=== PATIENT | male | born 1955 | race Asian ===

== ENCOUNTER 2020-06-01 05:57 | Emergency (ER) | payer OTHER ==
[~2020-06-01] VITALS: Ht 172.7 cm; Wt 79.1 kg
[~2020-06-01 05:57] MED LIST: ALLO100T PO; ASPI81TA39 PO; ATEN-73 PO; PRED50TA2 PO; SIMV-261 PO
[2020-06-01] MEDS ORDERED: ACETAMINOPHEN 500 MG TABLET PO ONE (06:30)
[2020-06-01] MEDS ORDERED: SODIUM CHLORIDE 0.9% 1,000 ML IV ONE (06:30)
[2020-06-01] MEDS ORDERED: MORPHINE SULFATE 4 MG/ML SYRINGE IVP ONE ×2 (07:00→12:30)
[2020-06-01] MEDS ORDERED: ONDANSETRON HCL 4 MG/2 ML VIAL IVP ONE (07:00)
[2020-06-01 09:26] LABS: COVID AG,FIA SOURCE NASOPHARYNGEAL
[2020-06-01 09:59] LABS: BASOPHILS % (AUTO) 0.3 % (0.0-2.0); EOSINOPHILS % (AUTO) 0 % (1.0-6.0); HEMATOCRIT 26.2 % (41-53); HEMOGLOBIN 8.8 g/dL (13.5-17.5); LYMPHOCYTES # (AUTO) 0.9 K/uL (1.0-4.8); LYMPHOCYTES % (AUTO) 5.1 % (22.0-44.0); MEAN CORPUSCULAR HGB CONC 33.5 G/dL (31.0-37.0); MEAN CORPUSCULAR VOLUME 90 fL (80-100); MONOCYTES # (AUTO) 1.5 K/uL (0.1-1.0); MONOCYTES % (AUTO) 8.5 % (2.0-9.0); NEUTROPHILS # (AUTO) 15.3 K/uL (1.8-7.7); PLATELET COUNT (AUTO) 381 K/uL (150-450); RED BLOOD CELL COUNT(AUTO) 2.93 MIL/uL (4.50-5.90); RED CELL DISTRIBUTION WIDTH 14.8 % (11.5-14.5)
[2020-06-01 10:04] LABS: NEUTROPHILS % (AUTO) 86.1 % (40.0-70.0)
[2020-06-01 10:15] LABS: CALCIUM, TOTAL 8.3 mg/dL (8.8-10.5); CREATININE 1.41 mg/dL (0.60-1.30); POTASSIUM 3.9 mmol/L (3.5-5.1)
[2020-06-01 10:16] LABS: INR 1.1 (0.9-1.1); PROTHROMBIN TIME 11.2 SEC (9.4-11.6)
[2020-06-01 10:22] LABS: LACTIC ACID 1.1 mmol/L (0.4-2.0)
[2020-06-01 10:40] LABS: ALBUMIN 2.5 g/dL (3.4-5.0); BILIRUBIN,TOTAL 0.9 mg/dL (0.1-1.0); C-REACTIVE PROTEIN QUANT 10.24 mg/dL (0.00-0.30); TOTAL PROTEIN, SERUM 6.5 g/dL (6.4-8.2)
[2020-06-01] MEDS ORDERED: ASPIRIN 81 MG CHEWABLE TABLET PO ONE (10:45)
[2020-06-01] MEDS ORDERED: VANCOMYCIN HCL 1 GM/D5% WATER 200 ML IV ONE (10:45)
[2020-06-01 10:51] LABS: URIC ACID 7.3 mg/dL (2.6-7.2)
[2020-06-01 11:13] LABS: ERYTHROCYTE SEDIMENTATION RATE 85 MM/HR (0-15)
[2020-06-01 11:44] LABS: APPEARANCE,URINE CLEAR (CLEAR); BILIRUBIN,URINE NEGATIVE (NEGATIVE); GLUCOSE, URINE (UA) NEGATIVE (NEGATIVE); KETONES,URINE TRACE mg/dL (NEGATIVE); LEUKOCYTE ESTERASE ,URINE NEGATIVE (NEGATIVE); NITRATE,URINE NEGATIVE (NEGATIVE); OCCULT BLOOD,URINE TRACE (NEGATIVE); PROTEIN,URINE NEGATIVE (NEGATIVE)
[2020-06-01 11:57] LABS: BACTERIA,URINE None Seen /HPF (None Seen); RBC,URINE None Seen /HPF (0-2); SQUAMOUS EPITHELIAL CELL,UR None Seen /LPF (None Seen); WBC,URINE None Seen /HPF (0-5)
[2020-06-01 12:02] LABS: INFLUENZA TYPE A NEGATIVE FOR TYPE A (NEGATIVE); INFLUENZA TYPE B NEGATIVE FOR TYPE B (NEGATIVE)
[2020-06-01] MEDS ORDERED: ATOR10TA69 PO (12:20)
[2020-06-01] MEDS ORDERED: OMEP20CA12 PO (12:20)
[2020-06-01] MEDS ORDERED: ATEN100T92 PO (12:20)
[2020-06-01 12:22] VITALS: BP 123/72
== END 2020-06-01 12:40 | disposition short-term general hospital (02) ==
LOC: EMS 05:58
DX: M00.9 Pyogenic arthritis, unspecified (principal); R77.8 Other specified abnormalities of plasma proteins; M25.561 Pain in right knee; M25.562 Pain in left knee; R50.9 Fever, unspecified; I10 Essential (primary) hypertension; Z20.822 Contact with and (suspected) exposure to COVID-19; Z79.82 Long term (current) use of aspirin
CPT/HCPCS: 36415; 71045; 73502; 73562 ×2; 80053; 81001; 82550; 83605; 83880; 84484; 84550; 85025; 85610; 85651; 85730; 86140; 87040; 87426; 87804; 93005; 96361; 96374; 96375; 99291; J2270; J2405; J3370; J7030; U0003